=== PATIENT | male | born 1955 | race Caucasian/White ===

== ENCOUNTER 2020-07-25 07:24 | Outpatient (REF) | payer MEDICARE, SELFPAY ==
[2020-07-25 11:21] LABS: MANUAL DIFF FLAG NO
[2020-07-25 11:33] LABS: Basophils Absolute Auto 0.1 X10*3/uL (0.0-0.2); Basophils Percent Auto 0.6 % (0-2); Eosinophils Absolute Auto 0.5 X10*3/uL (0.0-0.4); Eosinophils Percent Auto 4.6 % (0-4); Hemoglobin 16.5 g/dl (14.0-18.0); Imm Gran Abs Auto 0.05 X10*3/uL (0.00-0.03); Imm Gran Pct Auto 0.5 % (0.0-0.4); Lymphocytes Percent Auto 19.4 % (20-40); Mean Corpuscular Hemoglobin 32.5 pg (27.0-33.0); Mean Corpuscular Volume 98.4 fL (80-98); Mean Platelet Volume 12.6 fL (9.4-12.4); Monocytes Absolute Auto 0.7 X10*3/uL (0.1-1.2); Monocytes Percent Auto 6.8 % (2-11); Neutrophils Absolute Auto 7.2 X10*3/uL (2.0-8.3); Neutrophils Percent Auto 68.1 % (45-73); Platelet Count 215 X10*3/uL (160-400); Red Blood Count 5.08 X10*6/uL (4.60-5.80); White Blood Count 10.5 X10*3/uL (4.8-10.8)
[2020-07-25 12:12] LABS: Alanine Aminotransferase 53 U/L (0-40); Albumin Level 4.8 g/dL (3.5-5.0); Alkaline Phosphatase 100 U/L (39-117); Anion Gap 17 (12-20); Aspartate Amino Transferase 49 U/L (5-37); Bilirubin Total 1.3 mg/dL (0.0-1.0); Blood Urea Nitrogen 12 mg/dL (9-16); Calcium 9.5 mg/dL (8.4-10.2); Carbon Dioxide 25 mmol/L (22-29); Chloride 101 mmol/L (96-108); Cholesterol 222 mg/dL; Estimated Glomerular Filt Rate > 60; Glucose Fasting 108 mg/dL (60-99); HDL Cholesterol 56 mg/dL; LDL Cholesterol Calculated 132 mg/dl; Potassium 4.1 mmol/L (3.3-5.1); Sodium 139 mmol/L (135-145); Total Protein 7.7 g/dL (6.5-8.0); Triglycerides 171 mg/dL
[2020-07-25 12:13] LABS: Vitamin D 25-OH Total 38.2 ng/mL (>30)
[2020-07-25 13:24] LABS: Folate 12.1 ng/mL (> or = 4.0); Vitamin B12 334 pg/mL (200-900)
== END 2020-07-25 07:25 | disposition home or self-care (01) ==
LOC: HO.HMGCLDS 07:24
PROVIDERS: PCP Internal Medicine; Visit Provider Internal Medicine
DX: E78.00 Pure hypercholesterolemia, unspecified (principal); D51.3 Other dietary vitamin B12 deficiency anemia; E55.9 Vitamin D deficiency, unspecified
CPT/HCPCS: 36415; 80053; 80061; 82306; 82607; 82746; 85025

== ENCOUNTER 2020-11-01 07:39 | Outpatient (REF) | payer MEDICARE, SELFPAY ==
[2020-11-01 12:11] LABS: Alanine Aminotransferase 74 U/L (0-40); Albumin Level 4.8 g/dL (3.5-5.0); Alkaline Phosphatase 107 U/L (39-117); Anion Gap 18 (12-20); Aspartate Amino Transferase 64 U/L (5-37); Bilirubin Total 1.6 mg/dL (0.0-1.0); Blood Urea Nitrogen 15 mg/dL (9-16); Calcium 9.9 mg/dL (8.4-10.2); Carbon Dioxide 28 mmol/L (22-29); Chloride 97 mmol/L (96-108); Cholesterol 187 mg/dL; Estimated Glomerular Filt Rate > 60; Glucose Fasting 111 mg/dL (60-99); HDL Cholesterol 53 mg/dL; LDL Cholesterol Calculated 89 mg/dl; Potassium 3.8 mmol/L (3.3-5.1); Sodium 139 mmol/L (135-145); Triglycerides 226 mg/dL
[2020-11-01 12:31] LABS: Folate 12.2 ng/mL (> or = 4.0); Vitamin B12 379 pg/mL (200-900)
[2020-11-07 04:27] LABS: Vitamin D 25-OH, D2 <4 ng/mL; Vitamin D 25-OH, D3 54 ng/mL; Vitamin D 25-OH, Total 54 ng/mL (30-100)
== END 2020-11-01 07:40 | disposition home or self-care (01) ==
LOC: HO.HMGCLDS 07:39
PROVIDERS: PCP Internal Medicine; Visit Provider Internal Medicine
DX: E78.5 Hyperlipidemia, unspecified (principal); I10 Essential (primary) hypertension; E53.8 Deficiency of other specified B group vitamins; E55.9 Vitamin D deficiency, unspecified
CPT/HCPCS: 36415; 80053; 80061; 82306; 82607; 82746

== ENCOUNTER 2021-05-16 08:32 | Outpatient (REF) | payer MEDICARE, SELFPAY ==
[2021-05-16 11:42] LABS: MANUAL DIFF FLAG NO
[2021-05-16 11:54] LABS: Basophils Absolute Auto 0.1 X10*3/uL (0.0-0.2); Basophils Percent Auto 0.6 % (0-2); Eosinophils Absolute Auto 0.7 X10*3/uL (0.0-0.4); Eosinophils Percent Auto 5.3 % (0-4); Hematocrit 50.8 % (42.0-52.0); Hemoglobin 16.4 g/dl (14.0-18.0); Imm Gran Abs Auto 0.09 X10*3/uL (0.00-0.03); Imm Gran Pct Auto 0.7 % (0.0-0.4); Lymphocytes Absolute Auto 2.4 X10*3/uL (1.2-4.9); Lymphocytes Percent Auto 19.2 % (20-40); Mean Corpuscular HGB Conc 32.3 g/dl (31.0-36.0); Mean Platelet Volume 12.9 fL (9.4-12.4); Monocytes Absolute Auto 0.8 X10*3/uL (0.1-1.2); Monocytes Percent Auto 6.6 % (2-11); Neutrophils Absolute Auto 8.5 x10*3/uL (2.0-8.3); Neutrophils Percent Auto 67.6 % (45-73); Platelet Count 200 X10*3/uL (160-400); Red Blood Count 5.13 X10*6/uL (4.60-5.80); Red Cell Distribution Width 13.2 % (11.0-16.0); White Blood Count 12.6 X10*3/uL (4.8-10.8)
[2021-05-16 12:21] LABS: Alanine Aminotransferase 56 U/L (0-40); Albumin Level 4.7 g/dL (3.5-5.0); Alkaline Phosphatase 93 U/L (39-117); Anion Gap 17 (12-20); Aspartate Amino Transferase 51 U/L (5-37); Bilirubin Total 0.5 mg/dL (0.0-1.0); Blood Urea Nitrogen 14 mg/dL (9-16); Calcium 10.5 mg/dL (8.4-10.2); Carbon Dioxide 27 mmol/L (22-29); Chloride 98 mmol/L (96-108); Cholesterol 216 mg/dL; Estimated Glomerular Filt Rate > 60; Glucose Fasting 112 mg/dL (60-99); HDL Cholesterol 50 mg/dL; LDL Cholesterol Calculated 121 mg/dl; Potassium 4.1 mmol/L (3.3-5.1); Sodium 138 mmol/L (135-145); Total Protein 7.8 g/dL (6.5-8.0); Triglycerides 229 mg/dL
[2021-05-16 12:53] LABS: Folate 10.8 ng/mL (> or = 4.0); Vitamin B12 382 pg/mL (200-900)
[2021-05-20 22:37] LABS: Intrinsic Factor Antibodies Negative (Negative)
[2021-05-21 13:52] LABS: Vitamin D 25-OH, D2 <4 ng/mL; Vitamin D 25-OH, D3 38 ng/mL; Vitamin D 25-OH, Total 38 ng/mL (30-100)
[2021-05-21 15:01] LABS: Parietal Cell Antibody <=20.0 Unit (<=20.0)
== END 2021-05-16 08:33 | disposition home or self-care (01) ==
LOC: HO.HMGCLDS 08:32
PROVIDERS: PCP Internal Medicine; Visit Provider Internal Medicine
DX: I10 Essential (primary) hypertension (principal); E53.8 Deficiency of other specified B group vitamins; E78.5 Hyperlipidemia, unspecified; E55.9 Vitamin D deficiency, unspecified; D64.9 Anemia, unspecified
CPT/HCPCS: 36415; 80053; 80061; 82306; 82607; 82746; 83516; 85025; 86340

== ENCOUNTER 2021-11-30 07:14 | Outpatient (REF) | payer MEDICARE, SELFPAY ==
[2021-11-30 07:23] LABS: MANUAL DIFF FLAG NO
[2021-11-30 07:56] LABS: Hematocrit 50.7 % (42.0-52.0); Mean Corpuscular HGB Conc 33.5 g/dl (31.0-36.0); Mean Corpuscular Hemoglobin 32.4 pg (27.0-33.0); Mean Corpuscular Volume 96.6 fL (80.0-98.0); Mean Platelet Volume 12.6 fL (9.4-12.4); Platelet Count 175 X10*3/uL (160-400); Red Blood Count 5.25 X10*6/uL (4.60-5.80); Red Cell Distribution Width 13.3 % (11.0-16.0); White Blood Count 13.8 X10*3/uL (4.8-10.8)
[2021-11-30 07:57] LABS: Basophils Absolute Auto 0.1 X10*3/uL (0.0-0.2); Basophils Percent Auto 0.9 % (0-2); Eosinophils Absolute Auto 0.6 X10*3/uL (0.0-0.4); Eosinophils Percent Auto 4.6 % (0-4); Imm Gran Abs Auto 0.11 X10*3/uL (0.00-0.03); Imm Gran Pct Auto 0.8 % (0.0-0.4); Lymphocytes Absolute Auto 2.7 X10*3/uL (1.2-4.9); Lymphocytes Percent Auto 19.2 % (20-40); Neutrophils Absolute Auto 9.3 x10*3/uL (2.0-8.3); Neutrophils Percent Auto 67.5 % (45-73)
[2021-11-30 08:18] LABS: Alanine Aminotransferase 48 U/L (0-40); Albumin Level 4.8 g/dL (3.5-5.0); Alkaline Phosphatase 100 U/L (39-117); Anion Gap 21 (12-20); Aspartate Amino Transferase 44 U/L (5-37); Bilirubin Total 1.1 mg/dL (0.0-1.0); Blood Urea Nitrogen 12 mg/dL (9-16); Calcium 9.9 mg/dL (8.4-10.2); Carbon Dioxide 26 mmol/L (22-29); Chloride 96 mmol/L (96-108); Cholesterol 205 mg/dL; Estimated Glomerular Filt Rate > 60; Glucose Fasting 130 mg/dL (60-99); HDL Cholesterol 46 mg/dL; LDL Cholesterol Calculated 109 mg/dl; Potassium 4.2 mmol/L (3.3-5.1); Sodium 139 mmol/L (135-145); Total Protein 7.8 g/dL (6.5-8.0); Triglycerides 252 mg/dL
[2021-11-30 08:38] LABS: Vitamin D 25-OH Total 35.4 ng/mL (>30)
[2021-11-30 08:46] LABS: Folate 13.5 ng/mL (> or = 4.0); Vitamin B12 360 pg/mL (200-900)
== END 2021-11-30 07:15 | disposition home or self-care (01) ==
LOC: HO.LAB 07:14
PROVIDERS: PCP Internal Medicine; Visit Provider Internal Medicine
DX: D64.9 Anemia, unspecified (principal); E78.5 Hyperlipidemia, unspecified; E53.8 Deficiency of other specified B group vitamins; E55.9 Vitamin D deficiency, unspecified; J44.9 Chronic obstructive pulmonary disease, unspecified
CPT/HCPCS: 36415; 80053; 80061; 82306; 82607; 82746; 85025

== ENCOUNTER 2022-06-11 08:39 | Outpatient (REF) | payer MEDICARE, MEDICAID, SELFPAY ==
[2022-06-11 09:00] LABS: Baso%MD 0.9 %; Eos%MD 5.8 %; Hematocrit 46.5 % (42.0-52.0); Hemoglobin 15.5 g/dl (14.0-18.0); IG%MD 0.6 %; Mean Corpuscular HGB Conc 33.3 g/dl (31.0-36.0); Mean Corpuscular Volume 96.1 fL (80.0-98.0); Mean Platelet Volume 11.5 fL (9.4-12.4); Mono%MD 7.6 %; Neut%MD 62.1 %; Platelet Count 170 X10*3/uL (160-400); Red Blood Count 4.84 X10*6/uL (4.60-5.80); Red Cell Distribution Width 12.7 % (11.0-16.0); White Blood Count 10.5 X10*3/uL (4.8-10.8)
[2022-06-11 09:57] LABS: Band Neutrophils Percent 1 % (3-5); Basophils Abs Manual 0.1 X10*3/uL (0.0-0.2); Basophils Percent Manual 1 % (0-2); Eosinophils Absolute Manual 0.4 X10*3/uL (0.0-0.4); Eosinophils Percent Manual 4 % (0-4); Lymphocytes Absolute Manual 2.4 X10*3/uL (1.2-4.9); Lymphocytes Percent Manual 23 % (20-40); Monocytes Absolute Manual 0.5 X10*3/uL (0.1-1.2); Monocytes Percent Manual 5 % (2-11); Neutrophils Percent Manual 66 % (45-73)
[2022-06-11 09:58] LABS: Platelet Estimate NORMAL (NORMAL); Platelet Morphology Comment NORMAL; RBC Morphology NORMAL
[2022-06-11 10:32] LABS: Alanine Aminotransferase 36 U/L (0-40); Albumin Level 4.6 g/dL (3.5-5.0); Alkaline Phosphatase 75 U/L (39-117); Anion Gap 14 (12-20); Aspartate Amino Transferase 32 U/L (5-37); Bilirubin Total 0.9 mg/dL (0.0-1.0); Blood Urea Nitrogen 19 mg/dL (9-16); Calcium 9.8 mg/dL (8.4-10.2); Carbon Dioxide 31 mmol/L (22-29); Chloride 98 mmol/L (96-108); Cholesterol 200 mg/dL; Estimated Glomerular Filt Rate > 60; Glucose Fasting 113 mg/dL (60-99); HDL Cholesterol 49 mg/dL; LDL Cholesterol Calculated 107 mg/dl; Potassium 4.3 mmol/L (3.3-5.1); Sodium 139 mmol/L (135-145); Total Protein 7.2 g/dL (6.5-8.0); Triglycerides 220 mg/dL
[2022-06-11 10:50] LABS: Folate 7.6 ng/mL (> or = 4.0); Vitamin B12 361 pg/mL (200-900); Vitamin D 25-OH Total 34.3 ng/mL (>30)
== END 2022-06-11 08:40 | disposition home or self-care (01) ==
LOC: HO.LAB 08:39
PROVIDERS: Internal Medicine Medical Oncology; PCP Internal Medicine; Visit Provider Internal Medicine
DX: D72.829 Elevated white blood cell count, unspecified (principal); J44.9 Chronic obstructive pulmonary disease, unspecified; E55.9 Vitamin D deficiency, unspecified; E53.8 Deficiency of other specified B group vitamins; E78.5 Hyperlipidemia, unspecified
CPT/HCPCS: 36415; 80053; 80061; 81206; 81207; 82306; 82607; 82746; 85007; 85027

== ENCOUNTER 2022-12-10 09:55 | Outpatient (REF) | payer MEDICARE, SELFPAY | END 2022-12-10 09:56 | disposition home or self-care (01) | LOC: HO.LAB 09:55 | PROVIDERS: PCP Internal Medicine; Visit Provider Internal Medicine | DX: E78.5 Hyperlipidemia, unspecified (principal); D72.829 Elevated white blood cell count, unspecified; R73.02 Impaired glucose tolerance (oral); E53.8 Deficiency of other specified B group vitamins; E55.9 Vitamin D deficiency, unspecified | CPT/HCPCS: 36415; 80053; 80061; 82306; 82607; 82746 ==

== ENCOUNTER 2022-12-12 08:40 | Outpatient (AMB) | payer MEDICARE, SELFPAY ==
[2022-12-12 08:46] VITALS: BP 130/86; PULSE 95; O2SAT 95; BMI 37.0
--- NOTE | 2022-12-12 08:46 | AM.OFFVISMDC ---
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 Patient of Dr. Oh. Today we discussed patient's need for colon cancer screening and prostate cancer screening. Patient declined colonoscopy or a Cologuard, denies changes in bowels, patient was educated on importance of such screening. Up-to-date with immunizations. [place] of care was reviewed with the patient and he was provided with a screening schedule. End of life planning was discussed with the patient and he was provided with healthcare proxy and MOLST forms. [facility] Medical History (Updated 12/12/22 @ 09:26 by STACY Zamarripa) Leukocytosis Leukocytosis Transaminitis Hypovitaminosis D Class 2 obesity with body mass index (BMI) of 37.0 to 37.9 in adult B12 deficiency COPD (chronic obstructive pulmonary disease) Obese Dyslipidemia Impaired glucose tolerance Essential hypertension Surgical History Kidney stone History of skin graft H/O left knee surgery History of appendectomy Family History Father Hypertension Stomach cancer Mother Stomach cancer Ovarian cancer Hypertension CVD (cardiovascular disease) Stroke Maternal Grandmother Medical history unknown Brother Colon cancer Rectal cancer Maternal Uncle Skin cancer Social History Household Members: None Housing: Apartment Are you a primary care asst to a significant other at home: No Do you presently have visiting nurse or other home services: No Alcohol intake: current Alcohol intake frequency: holidays/special occasions only Alcohol type: wine Patient Tobacco Use Status: Current someday Tobacco user Tobacco use type: Cigarette Cigarettes Per Day: 2 e-Cigarette/Vaping Use: Never Used Second Hand Smoke Exposure: No Substance Use Type: Marijuana service: Yes Current occupational status: retired and disabled Cognitive needs: No Hearing needs: No Vision needs: No Questionnaire Medicare Wellness Checkup [age] What gender do you identify with?: male During the past 4 weeks, how much have you been bothered by emotional problems such as feeling anxious, depressed, irritable, sad or downhearted, and blue?: not at all During the past 4 weeks, has your physical & emotional health limited your social activities with family, friends, neighbors, or groups?: slightly During the past 4 weeks, how much bodily pain have you generally had?: moderate pain During the past 4 weeks, was someone available to help you if you needed & wanted help?: yes, some During the past 4 weeks, what was the hardest physical activity you could do for at least 2 minutes?: moderate Can you get to places out of walking distance without help? (For eg., can you travel alone on buses, taxis or drive your car?): Yes Can you go shopping for groceries or clothes without someone's help?: Yes Can you prepare your own meals?: Yes Can you do your housework without help?: Yes Because of any health problems, do you need the help of another person with your personal care needs such as eating, bathing, dressing or getting around the house?: No Can you handle your own money without help?: Yes During the past 4 weeks, how would you rate your health in general?: fair During the past 4 weeks how have things been going for you?: pretty well Are you having difficulties driving your car?: not applicable, I don't use a car Do you always fasten your seat belt when you are in a car?: yes, usually During past 4 weeks, have you been bothered by the following: never: Falling or dizzy when standing up, Sexual problems?, Trouble eating well?, Teeth or denture problems? and Problems using the telephone? and sometimes: Tiredness or fatigue? Have you fallen 2 or more times in the past year?: No Are you afraid of falling?: No Are you a smoker?: yes, and I might quit During the past 4 weeks, how many drinks of wine, beer, or other alcoholic beverages did you have?: 1 drink or less per week Do you exercise for about 20 minutes 3 or more times a week?: yes, some of the time Have you been given information to help with the following?: yes: Hazards in your house that might hurt you? and no: Keeping track of your medications? How often do you have trouble taking medicines the way you have been told to take them?: I always take medicine as prescribed How confident are you that you can control & manage most of your health problems?: very confident What is your race?: White Mini Mental State Exam (MMSE) Orientation What is the (year) (season) (date) (day) (month)?: year, season, date, day and month Score Score: 5 Activity of Daily Living Bathing - sponge bath, tub bath or shower: receives no assistance (gets in/out by self, if usual bathing means Dressing - getting clothes from closets & drawers, including inner/outer garments & fasteners.: gets clothes & gets completely dressed without help Toileting - going to the 'toilet room' for urine/bowel elimination & cleaning self/arranging clothes: goes to toilet room, cleans self, arranges clothes without help Transfer: moves in & out of bed and chair without help (may use support object) Continence: controls urination/bowel movements completely by self Feeding: feeds self without help Total Score: 0 Information obtained from: patient Using telephone: independent Traveling: dependent Shopping: independent Preparing meals: independent Housework: independent Taking medicine: independent Managing money: independent PHQ-9 Over the last 2 weeks, how often have you been bothered by any of the following problems? 1. Little interest or pleasure in doing things: not at all 2. Feeling down, depressed, or hopeless: not at all 3. Trouble falling or staying asleep, or sleeping too much: more than half the days 4. Feeling tired or having little energy: not at all 5. Poor appetite or overeating: not at all 6. Feeling bad about yourself - or that you are a failure or have let yourself or your family down: not at all 7. Trouble concentrating on things, such as reading the newspaper or watching television: not at all 8. Moving or speaking so slowly that other people could have noticed. Or the opposite - being so fidgety or restless that you have been moving around a lot more than usual: not at all 9. Thoughts that you would be better off or of hurting yourself in some way: not at all Total score: 2 Depression Screening Interpretation: Negative Depression Screening Done: Yes 69112 - PHQ-9 Billing: Yes Source: Developed by Drs. Cesario Bergeron, Chrissy Cazares, Duran Santos and colleagues, with an educational javier from [employer]. Physical Exam Vital Signs: Last Vital Signs Pulse 95 12/12/22 08:46 BP 130/86 12/12/22 08:46 Pulse Ox 95 12/12/22 08:46 Oxygen Delivery Method Room Air 12/12/22 08:46 BMI result Body Mass Index 37.0 Const General: cooperative and no acute distress Orientation/consciousness: patient oriented x3 HEENT Other: Whisper test: pass Neuro Other: Balance: Normal Get up and walk: able to Romberg: negative Tandem gait: unable to General: patient oriented x3 Assessment & Plan Assessment & Plan (1) Screening for prostate cancer: Code(s): Z12.5 - Encounter for screening for malignant neoplasm of prostate (2) Encounter for Medicare annual wellness exam: Code(s): Z00.00 - Encounter for general adult medical examination without abnormal findings (3) Tubular adenoma of colon: Code(s): D12.6 - Benign neoplasm of colon, unspecified Plan: Patient reports that he did have normal colonoscopy at age 58, patient is due for another colonoscopy, he has declined colonoscopy or a Cologuard, he was educated on the importance of such screenings. (4) Class 2 obesity with body mass index (BMI) of 37.0 to 37.9 in adult: Code(s): E66.9 - Obesity, unspecified; Z68.37 - Body mass index [BMI] 37.0-37.9, adult Qualifiers: Obesity type: due to excess calories Serious obesity comorbidity presence: with serious comorbidity Qualified Code(s): E66.01 - Morbid (severe) obesity due to excess calories; Z68.37 - Body mass index [BMI] 37.0-37.9, adult Plan: Healthy food choices and exercise as tolerated (5) COPD (chronic obstructive pulmonary disease): Code(s): J44.9 - Chronic obstructive pulmonary disease, unspecified Plan: Stable Continue albuterol inhaler p.r.n. (6) Dyslipidemia: Code(s): E78.5 - Hyperlipidemia, unspecified Plan: Continue atorvastatin Low-cholesterol diet (7) Impaired glucose tolerance: Code(s): R73.02 - Impaired glucose tolerance (oral) Plan: Recent fasting glucose 108 A1c ordered (8) Essential hypertension: Code(s): I10 - Essential (primary) hypertension Plan: Goal BP equal or less than 140/90 Continue current treatment Low-sodium diet and weight loss (9) Colonoscopy refused: Code(s): Z53.20 - Procedure and treatment not carried out because of patient's decision for unspecified reasons Orders: Orders Prostate Specific Antigen Today Z12.5 - Encounter for screening for malignant neoplasm of prostate Hemoglobin A1c Today R73.02 - Impaired glucose tolerance (oral) Quality Reporting (2019) Adult ([facility] 138/2/69) Smoking risk assessment performed?: Yes Patient Tobacco Use Status: Current someday Tobacco user Depression/Bipolar (159/160/161/177) PHQ-9: Total score: 2 Coding Level of Care Code Medicare Subsequent (G0439) Diagnoses Screening for prostate cancer Z12.5 Encounter for Medicare annual wellness exam Z00.00 Tubular adenoma of colon D12.6 Class 2 severe obesity due to excess calories with serious comorbidity and body mass index (BMI) of 37.0 to 37.9 in adult E66.01; Z68.37 Obesity type: due to excess calories Serious obesity comorbidity presence: with serious comorbidity COPD (chronic obstructive pulmonary disease) J44.9 Dyslipidemia E78.5 Impaired glucose tolerance R73.02 Essential hypertension I10 Colonoscopy refused Z53.20 CPT Codes Advance Care Planning - Time spent: 1-15 minutes, not on file ([id number]) Advance Care Planning Date of discussion: 12/12/22 Who was present: pt and soot blower Forms completed: None Time spent: 1-15 minutes, not on file Actual minutes spent: 3 Did not discuss due to Cultural/Spiritual beliefs: No
== END 2022-12-12 09:24 | disposition home or self-care (01) ==
PROVIDERS: Visit Provider Nurse Practitioner Family
DX: Z00.00 Encounter for general adult medical examination without abnormal findings (principal); E66.01 Morbid (severe) obesity due to excess calories; Z68.37 Body mass index [BMI] 37.0-37.9, adult; J44.9 Chronic obstructive pulmonary disease, unspecified
CPT/HCPCS: 1124F; G0439

== ENCOUNTER 2023-06-18 08:14 | Outpatient (REF) | payer MEDICARE, SELFPAY ==
[2023-06-18 10:15] LABS: Alanine Aminotransferase 40 U/L (0-40); Albumin Level 4.6 g/dL (3.5-5.0); Alkaline Phosphatase 83 U/L (39-117); Anion Gap 15 (12-20); Aspartate Amino Transferase 36 U/L (5-37); Bilirubin Total 0.7 mg/dL (0.0-1.0); Blood Urea Nitrogen 16 mg/dL (9-16); Carbon Dioxide 28 mmol/L (22-29); Chloride 103 mmol/L (96-108); Cholesterol 172 mg/dL (<200); Estimated Glomerular Filt Rate > 60; Glucose Fasting 118 mg/dL (60-99); HDL Cholesterol 51 mg/dL (>40); LDL Cholesterol Calculated 89 mg/dL (<100); Potassium 4.6 mmol/L (3.3-5.1); Sodium 141 mmol/L (135-145); Total Protein 7.6 g/dL (6.5-8.0); Triglycerides 162 mg/dL (<150); Vitamin D 25-OH Total 31.8 ng/mL (>30)
[2023-06-18 10:56] LABS: Vitamin B12 385 pg/mL (200-900)
== END 2023-06-18 08:15 | disposition home or self-care (01) ==
LOC: HO.LAB 08:14
PROVIDERS: PCP Internal Medicine; Visit Provider Internal Medicine
DX: E78.5 Hyperlipidemia, unspecified (principal); E53.8 Deficiency of other specified B group vitamins; E55.9 Vitamin D deficiency, unspecified; R73.02 Impaired glucose tolerance (oral)
CPT/HCPCS: 36415; 80053; 80061; 82306; 82607; 82746

== ENCOUNTER 2023-06-24 09:44 | Outpatient (AMB) | payer MEDICARE, SELFPAY ==
[2023-06-24 09:49] VITALS: BP 138/82; PULSE 86; O2SAT 98; BMI 37.7
--- NOTE | 2023-06-24 09:49 | A.OFFVIS_ITS ---
Vital Signs 06/24/23 09:49 Height 5 ft 7 in Intake Visit Reasons: Hypertension Allergies No Known Allergies Allergy (Verified 12/12/22 09:07) [facility] Medical History (Updated 12/12/22 @ 09:26 by STACY Zamarripa) Leukocytosis Leukocytosis Transaminitis Hypovitaminosis D Class 2 obesity with body mass index (BMI) of 37.0 to 37.9 in adult B12 deficiency COPD (chronic obstructive pulmonary disease) Obese Dyslipidemia Impaired glucose tolerance Essential hypertension Surgical History Kidney stone History of skin graft H/O left knee surgery History of appendectomy Family History Father Hypertension Stomach cancer Mother Stomach cancer Ovarian cancer Hypertension CVD (cardiovascular disease) Stroke Maternal Grandmother Medical history unknown Brother Colon cancer Rectal cancer Maternal Uncle Skin cancer Social History Household Members: None Housing: Apartment Are you a primary care aid to a significant other at home: No Do you presently have visiting nurse or other home services: No Alcohol intake: current Alcohol intake frequency: holidays/special occasions only Alcohol type: wine Patient Tobacco Use Status: Current someday Tobacco user Tobacco use type: Cigarette Cigarettes Per Day: 2 e-Cigarette/Vaping Use: Never Used Second Hand Smoke Exposure: No Substance Use Type: Marijuana service: Yes Current occupational status: retired and disabled Cognitive needs: No Hearing needs: No Vision needs: No Quality Reporting (2019) Adult ([facility] 138/04/25/68) Smoking risk assessment performed?: Yes Patient Tobacco Use Status: Current someday Tobacco user
--- NOTE | 2023-06-24 09:57 | MHC.PC.OV ---
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 Accompanied by: Self / Same As Patient Allergies No Known Allergies Allergy (Verified 06/24/23 10:29) Medication List - Last Reconciled 06/24/23 by Carina Flaherty MD albuterol sulfate 90 mcg/actuation (ProAir HFA) 2 puffs inhalation Q6H PRN 30 days atorvastatin 80 mg PO BEDTIME 90 days cholecalciferol (vitamin D3) 125 mcg PO DAILY hydrochlorothiazide 50 mg PO DAILY 90 days losartan 25 mg PO DAILY 90 days multivitamin (Daily Multi-Vitamin tablet) 1 tab PO DAILY Tobacco use date assessed: 06/24/23 Fall risk assessment: No Falls in past year Last assessed Fall Risk: 06/24/23 Dental Screening Dental Screen Date: 06/24/23 HPI HPI Comments History of Present Illness Details This is a 67 year old male with hypertension, dyslipidemia, COPD and impaired glucose tolerance that comes today for follow-up on his conditions. Blood pressure stable. LDL within goal. Fasting blood glucose is elevated and this will be repeated in 6 months. Advised to start a low carbohydrate diet. Has COPD that has been stable with rescue inhaler as needed. Last pulmonary function test was few years ago. No chest pain or shortness of breath. Doing well. Declines colonoscopy. PFS Medical History Leukocytosis Leukocytosis Transaminitis Hypovitaminosis D Class 2 obesity with body mass index (BMI) of 37.0 to 37.9 in adult B12 deficiency COPD (chronic obstructive pulmonary disease) Obese Dyslipidemia Impaired glucose tolerance Essential hypertension Surgical History Kidney stone History of skin graft H/O left knee surgery History of appendectomy Family History Father Hypertension Stomach cancer Mother Stomach cancer Ovarian cancer Hypertension CVD (cardiovascular disease) Stroke Maternal Grandmother Medical history unknown Brother Colon cancer Rectal cancer Maternal Uncle Skin cancer Social History Household Members: None Housing: Apartment Are you a primary respiratory care assistant to a significant other at home: No Do you presently have visiting nurse or other home services: No Alcohol intake: current Alcohol intake frequency: holidays/special occasions only Alcohol type: wine Patient Tobacco Use Status: Current someday Tobacco user Tobacco use type: Cigarette Cigarettes Per Day: 2 e-Cigarette/Vaping Use: Never Used Second Hand Smoke Exposure: No Substance Use Type: Marijuana service: Yes Current occupational status: retired and disabled Cognitive needs: No Hearing needs: No Vision needs: No Questionnaire Thrive Questionnaire Date Thrive assessed: 06/24/23 I am a: Patient What is your living situation today?: I have a steady place to live Within the past 12 months, did the food you bought not last and you didn't have the money to get more?: Never true Within the past 12 months, did you worry whether your food would run out before you got money to buy more?: Never true Do you have trouble paying for medicines?: No Do you have trouble getting transportation to medical appointments?: No Do you have trouble paying your heating and electricity bill?: No Do you have trouble taking care of your child, family member or friend?: No Do you have trouble with day-to-day activities such as bathing, preparing meals, shopping, managing finances, etc.?: No Are you currently unemployed and looking for a job?: No Are you interested in more education?: No Please select the resources that you would like help with: None Currently or been in a relationship where the following occur: no concerns reported THRIVE Score: 0 AUDIT C Alcohol Use Questionnaire (AUDIT-C) 1. How often do you have a drink containing alcohol?: Monthly or less 2. How many drinks containing alcohol do you have on a typical day when you are drinking?: 1 or 2 3. How often do you have six or more drinks on one occasion?: Never Total Score: 1 EDUIN-7 AMB Questionnaire DEUIN-7 Date EDUIN - 7 assessed: 06/21/22 Source: Developed by Drs. Cesario Bergeron, Chrissy Cazares, Duran Santos and colleagues, with an educational javier from [facility]. Review of Systems Const All systems reviewed & are unremarkable except as noted in HPI and below Eyes Reports no additional complaints, Denies change in vision and Denies other visual disturbances Card Denies chest pain at rest, Denies chest pain with activity, Denies edema, Denies irregular heart rhythm, Denies claudication, Denies dyspnea, Denies dyspnea on exertion, Denies orthopnea, Denies paroxysmal nocturnal dyspnea and Denies slow heart rate Resp Denies cough, Denies dyspnea and Denies dyspnea on exertion Physical exam (Primary Care) Vital Signs: Last Vital Signs Pulse 86 06/24/23 09:49 BP 138/82 06/24/23 09:49 Pulse Ox 98 06/24/23 09:49 Oxygen Delivery Method Room Air 06/24/23 09:49 BMI result Body Mass Index 37.7 Tobacco/Smoking Status: Tobacco use Status Tobacco use date assessed 06/24/23 06/24/23 09:58 Patient Tobacco Use Status Current someday Tobacco 06/24/23 09:58 Tobacco use type Cigarette 06/24/23 09:58 e-Cigarette/Vaping Use Never Used 06/24/23 09:58 Thrive Assessment: Date of Thrive Assessment Date Thrive assessed 06/24/23 06/24/23 09:58 Currently or been in a relationship where the following occur: no concerns reported Resp Effort & Inspection: normal respiratory effort Auscultation: clear to auscultation bilaterally Cardio Jugular venous distension: no JVD Rate: regular rate Rhythm: regular rhythm Heart sounds: S1 normal heart sound present and S2 normal heart sound present Extrem General: Yes full ROM Assessment and Plan Assessment & Plan (1) COPD (chronic obstructive pulmonary disease): Code(s): J44.9 - Chronic obstructive pulmonary disease, unspecified Plan: PFT ordered. Use rescue inhaler as needed. (2) Dyslipidemia: Code(s): E78.5 - Hyperlipidemia, unspecified Plan: Continue statins. (3) Essential hypertension: Code(s): I10 - Essential (primary) hypertension Plan: Continue losartan and hydrochlorothiazide. Blood pressure goal is equal or less than 130/80. (4) Impaired glucose tolerance: Code(s): R73.02 - Impaired glucose tolerance (oral) Plan: Start low-carbohydrate diet. Repeat fasting blood glucose in 6 months. Orders: Orders Lipid Panel 6 Months E78.5 - Hyperlipidemia, unspecified Comprehensive [place]. Panel Fast 6 Months R73.02 - Impaired glucose tolerance (oral) Vitamin B12 and Folate 6 Months E53.8 - Deficiency of other specified B group vitamins Vitamin D 25-OH Total 6 Months E55.9 - Vitamin D deficiency, unspecified PFT pulmonary function test Today J44.9 - Chronic obstructive pulmonary disease, unspecified Review Patient declined Colonoscopy: 06/24/23 Patient declined Colon Cancer Screen Lab: 06/24/23 Coding Level of Care Code Est Pt Level 4 (05669) Diagnoses COPD (chronic obstructive pulmonary disease) J44.9 Dyslipidemia E78.5 Essential hypertension I10 Impaired glucose tolerance R73.02 Time Spent (min) 23
== END 2023-06-24 10:45 | disposition home or self-care (01) ==
PROVIDERS: PCP Internal Medicine; Visit Provider Internal Medicine
DX: J44.9 Chronic obstructive pulmonary disease, unspecified (principal); E78.5 Hyperlipidemia, unspecified; I10 Essential (primary) hypertension; R73.02 Impaired glucose tolerance (oral)
CPT/HCPCS: 99214

== ENCOUNTER 2023-12-20 10:06 | Outpatient (REF) | payer MEDICARE, SELFPAY ==
[2023-12-20 11:31] LABS: Alanine Aminotransferase 38 U/L (0-40); Albumin Level 4.7 g/dL (3.5-5.0); Alkaline Phosphatase 72 U/L (39-117); Anion Gap 15 (12-20); Aspartate Amino Transferase 39 U/L (5-37); Bilirubin Total 1.1 mg/dL (0.0-1.0); Blood Urea Nitrogen 11 mg/dL (9-16); Calcium 10.1 mg/dL (8.4-10.2); Carbon Dioxide 29 mmol/L (22-29); Chloride 102 mmol/L (96-108); Cholesterol 205 mg/dL (<200); Estimated Glomerular Filt Rate > 60; Glucose Fasting 122 mg/dL (60-99); HDL Cholesterol 44 mg/dL (>40); LDL Cholesterol Calculated 117 mg/dL (<100); Potassium 4.6 mmol/L (3.3-5.1); Sodium 141 mmol/L (135-145); Total Protein 7.6 g/dL (6.5-8.0); Triglycerides 223 mg/dL (<150)
[2023-12-20 11:36] LABS: Vitamin D 25-OH Total 28.9 ng/mL (>30)
[2023-12-20 11:48] LABS: Folate 14.2 ng/mL (> or = 4.0); Vitamin B12 423 pg/mL (200-900)
== END 2023-12-20 10:07 | disposition home or self-care (01) ==
LOC: HO.LAB 10:06
PROVIDERS: PCP Internal Medicine; Visit Provider Internal Medicine
DX: R73.02 Impaired glucose tolerance (oral) (principal); E55.9 Vitamin D deficiency, unspecified; E78.5 Hyperlipidemia, unspecified; E53.8 Deficiency of other specified B group vitamins
CPT/HCPCS: 36415; 80053; 80061; 82306; 82607; 82746

== ENCOUNTER 2023-12-24 07:45 | Outpatient (AMB) | payer MEDICARE, SELFPAY ==
[2023-12-24 07:50] VITALS: BP 152/100; BMI 37.4
--- NOTE | 2023-12-24 07:50 | A.OFFPC_ITS ---
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 Accompanied by: Self / Same As Patient Allergies No Known Allergies Allergy (Verified 12/24/23 08:06) Medication List - Last Reconciled 12/24/23 by Carina Flaherty MD albuterol sulfate 90 mcg/actuation (ProAir HFA) 2 puffs inhalation Q6H PRN 30 days atorvastatin 80 mg PO BEDTIME 90 days cholecalciferol (vitamin D3) 125 mcg PO DAILY hydrochlorothiazide 50 mg PO DAILY 90 days losartan 25 mg PO DAILY 90 days multivitamin (Daily Multi-Vitamin tablet) 1 tab PO DAILY Tobacco use date assessed: 06/24/23 Fall risk assessment: No Falls in past year Last assessed Fall Risk: 12/24/23 Dental Screening Dental Screen Date: 12/24/23 Did you have a dental visit in the last 12 months?: No Did you have a dental problem in the last 6 months where you did not have access to dental care?: No Was dental information given to patient?: Patient has dentist HPI HPI Comments History of Present Illness Details This is a 68-year-old male with hypertension, dyslipidemia, impaired glucose tolerance and COPD that comes today for follow-up on his conditions and recent labs. Blood pressure elevated today and he only takes losartan 25 mg once a day. I will increase losartan to 50 mg. Blood pressure will be recheck in 3 weeks by nurse navigator. Cholesterol elevated and he admits not being compliant with atorvastatin. Fasting blood glucose also elevated but he denies any polyuria, polydipsia or unintentional weight loss. He was advised to call me if this symptoms happen. He use rescue inhaler once a year for his COPD. Last colonoscopy was 2014 showing multiple tubular adenomas but he declines colonoscopy at the moment. He is a smoker and was advised to quit. [facility] Medical History (Updated 12/24/23 @ 08:27 by Carina Flaherty MD) Leukocytosis Leukocytosis Transaminitis Hypovitaminosis D Class 2 obesity with body mass index (BMI) of 37.0 to 37.9 in adult B12 deficiency COPD (chronic obstructive pulmonary disease) Obese Dyslipidemia Impaired glucose tolerance Essential hypertension Surgical History Kidney stone History of skin graft H/O left knee surgery History of appendectomy Family History Father Hypertension Stomach cancer Mother Stomach cancer Ovarian cancer Hypertension CVD (cardiovascular disease) Stroke Maternal Grandmother Medical history unknown Brother Colon cancer Rectal cancer Maternal Uncle Skin cancer Social History Household Members: None Housing: Apartment Are you a primary clinical care coordinator to a significant other at home: No Do you presently have visiting nurse or other home services: No Alcohol intake: current Alcohol intake frequency: holidays/special occasions only Alcohol type: wine Patient Tobacco Use Status: Current someday Tobacco user Tobacco use type: Cigarette Cigarettes Per Day: 2 e-Cigarette/Vaping Use: Never Used Second Hand Smoke Exposure: No Substance Use Type: Marijuana service: Yes Current occupational status: retired and disabled Cognitive needs: No Hearing needs: No Vision needs: No Questionnaire Thrive Questionnaire Date Thrive assessed: 06/24/23 EDUIN-7 AMB Questionnaire EDUIN-7 Date EDUIN - 7 assessed: 06/21/22 Source: Developed by Drs. Cesario Bergeron, Chrissy Cazares, Duran Santos and colleagues, with an educational javier from [employer]. Review of Systems Const All systems reviewed & are unremarkable except as noted in HPI and below Card Denies chest pain at rest, Denies chest pain with activity, Denies edema, Denies irregular heart rhythm, Denies claudication, Denies dyspnea, Denies dyspnea on exertion, Denies orthopnea, Denies paroxysmal nocturnal dyspnea and Denies slow heart rate Resp Denies cough, Denies dyspnea and Denies dyspnea on exertion GI Denies abdominal pain, Denies change in bowel habits, Denies excessive flatus, Denies nausea and Denies vomiting Physical exam (Primary Care) Vital Signs: Last Vital Signs BP 152/100 H 12/24/23 07:50 Care Plan Goal for BP management: Losartan was increased to 50 mg. Next steps: Recheck blood pressure with nurse navigator in 3 weeks BMI result Body Mass Index 37.4 BMI Assessment/Plan discussion: High BMI High, discussed plan: lifestyle, weight reduction, dietary and physical activity Tobacco/Smoking Status: Tobacco use Status Tobacco use date assessed 06/24/23 12/24/23 07:56 Patient Tobacco Use Status Current someday Tobacco 12/24/23 07:56 Tobacco use type Cigarette 12/24/23 07:56 e-Cigarette/Vaping Use Never Used 12/24/23 07:56 Are you ready to quit: No Tobacco cessation counseling provided: Yes Items discussed: Nicotine replacement and QuitWorks Relapse Prevention: discussed the importance of a supportive environment, discussed negative mood or depression after quitting, weight gain after smoking is common and discussed dietary, exercise and/or lifestyle changes Number of minutes spent counselin CPT code: 02077 - 4-10 Minutes Thrive Assessment: Date of Thrive Assessment Date Thrive assessed 06/24/23 12/24/23 07:56 Resp Effort & Inspection: normal respiratory effort Auscultation: clear to auscultation bilaterally Cardio Jugular venous distension: no JVD Rate: regular rate Rhythm: regular rhythm Heart sounds: S1 normal heart sound present and S2 normal heart sound present Extrem General: Yes full ROM Office Procedures Flu Questionnaire Does the patient have a severe egg allergy?: No Immunizations Fluarix Triv [id number] (PF) 45 mcg (15 mcg x 3)/0.5 mL IM syringe Performing Provider: Carina Flaherty MD [facility] Documented (not given) by: JINNY Barraza on 12/24/23 07:57 Reason Not Given: Patient Refused Coding Level of Care Code Est Pt Level 4 (19840) Complex EM visit Add On G2211 Diagnoses Essential hypertension I10 Chronic obstructive pulmonary disease, unspecified COPD type J44.9 COPD type: unspecified COPD Dyslipidemia E78.5 Impaired glucose tolerance R73.02 Additional Codes Vital Signs *Quality* - CPT code: 24126 - 4-10 Minutes ([id number]) Time Spent (min) 24 Assessment & Plan Assessment & Plan (1) Essential hypertension: Code(s): I10 - Essential (primary) hypertension Category: Medical Plan: Increase losartan to 50 mg. Blood pressure goal is equal or less than 130/80. Recheck blood pressure with nurse navigator in 3 weeks. (2) COPD (chronic obstructive pulmonary disease): Code(s): J44.9 - Chronic obstructive pulmonary disease, unspecified Category: Medical Qualifiers: COPD type: unspecified COPD Qualified Code(s): J44.9 - Chronic obstructive pulmonary disease, unspecified Plan: Use rescue inhaler as needed. (3) Dyslipidemia: Code(s): E78.5 - Hyperlipidemia, unspecified Category: Medical Plan: Be compliant with statins. Advise low-cholesterol diet. (4) Impaired glucose tolerance: Code(s): R73.02 - Impaired glucose tolerance (oral) Category: Medical Plan: Repeat fasting blood glucose in 6 months. Orders: Orders Influenza [id number] Immunization Today Z23 - Encounter for immunization Lipid Panel 6 Months E78.5 - Hyperlipidemia, unspecified Complete Blood Count Auto Diff 6 Months D64.9 - Anemia, unspecified Comprehensive Binger. Panel Fast 6 Months R73.02 - Impaired glucose tolerance (oral) Vitamin D 25-OH Total 6 Months E55.9 - Vitamin D deficiency, unspecified Vitamin B12 and Folate 6 Months E53.8 - Deficiency of other specified B group vitamins IRON PROFILE 6 Months D64.9 - Anemia, unspecified Medications: New losartan 50 mg PO DAILY 90 tabs 1RF 90 days Discontinued hydrochlorothiazide Discontinued Reason: Patient Completed Course 50 mg PO DAILY 90 days 90 tabs 1RF losartan Discontinued Reason: Patient Completed Course 25 mg PO DAILY 90 days 90 tabs 0RF
[2023-12-24 08:25] VITALS: BP 150/90
== END 2023-12-24 08:24 | disposition home or self-care (01) ==
PROVIDERS: PCP Internal Medicine; Visit Provider Internal Medicine
DX: I10 Essential (primary) hypertension (principal); J44.9 Chronic obstructive pulmonary disease, unspecified; E78.5 Hyperlipidemia, unspecified; R73.02 Impaired glucose tolerance (oral); Z23 Encounter for immunization

== ENCOUNTER → 2023-12-24 07:45 | Outpatient (BNVA) | payer MEDICARE, SELFPAY | PROVIDERS: PCP Internal Medicine; Visit Provider Internal Medicine | DX: I10 Essential (primary) hypertension (principal); J44.9 Chronic obstructive pulmonary disease, unspecified; E78.5 Hyperlipidemia, unspecified; R73.02 Impaired glucose tolerance (oral); Z79.899 Other long term (current) drug therapy; Z28.21 Immunization not carried out because of patient refusal | CPT/HCPCS: 90471; 99212 ==

== ENCOUNTER 2024-06-25 07:44 | Outpatient (REF) | payer MEDICARE, SELFPAY ==
[2024-06-25 08:02] LABS: MANUAL DIFF FLAG NO
[2024-06-25 08:16] LABS: Basophils Absolute Auto 0.1 X10*3/uL (0.0-0.2); Basophils Percent Auto 0.6 % (0-2); Eosinophils Absolute Auto 0.7 X10*3/uL (0.0-0.4); Hematocrit 45.8 % (42.0-52.0); Hemoglobin 15.2 g/dl (14.0-18.0); Imm Gran Abs Auto 0.08 X10*3/uL (0.00-0.03); Imm Gran Pct Auto 0.7 % (0.0-0.4); Lymphocytes Absolute Auto 2.5 X10*3/uL (1.2-4.9); Lymphocytes Percent Auto 22.5 % (20-40); Mean Corpuscular HGB Conc 33.2 g/dl (31.0-36.0); Mean Corpuscular Hemoglobin 32.3 pg (27.0-33.0); Mean Corpuscular Volume 97.4 fL (80.0-98.0); Mean Platelet Volume 11.9 fL (9.4-12.4); Monocytes Absolute Auto 0.7 X10*3/uL (0.1-1.2); Monocytes Percent Auto 6.5 % (2-11); Neutrophils Percent Auto 63.7 % (45-73); Platelet Count 170 X10*3/uL (160-400); Red Cell Distribution Width 12.8 % (11.0-16.0)
[2024-06-25 08:47] LABS: Alanine Aminotransferase 36 U/L (0-40); Albumin Level 4.5 g/dL (3.5-5.0); Alkaline Phosphatase 79 U/L (39-117); Anion Gap 9 (12-20); Aspartate Amino Transferase 31 U/L (5-37); Bilirubin Total 0.5 mg/dL (0.0-1.0); Blood Urea Nitrogen 9 mg/dL (9-16); Calcium 9.9 mg/dL (8.4-10.2); Carbon Dioxide 32 mmol/L (22-29); Chloride 103 mmol/L (96-108); Cholesterol 151 mg/dL (<200); Estimated Glomerular Filt Rate > 60; Glucose Fasting 110 mg/dL (60-99); HDL Cholesterol 52 mg/dL (>40); Iron 59 mcg/dL (45-160); LDL Cholesterol Calculated 67 mg/dL (<100); Percent Iron Saturation 21 % (15-50); Potassium 4.6 mmol/L (3.3-5.1); Sodium 139 mmol/L (135-145); Total Iron Binding Capacity 285 mcg/dL (228-428); Total Protein 7.3 g/dL (6.5-8.0); Triglycerides 162 mg/dL (<150); Unsaturated Iron Binding 226 ug/dL
[2024-06-25 09:03] LABS: Vitamin D 25-OH Total 33.3 ng/mL (>30)
[2024-06-25 09:10] LABS: Vitamin B12 428 pg/mL (200-900)
== END 2024-06-25 07:45 | disposition home or self-care (01) ==
LOC: HO.LAB 07:44
PROVIDERS: PCP Internal Medicine; Visit Provider Internal Medicine
DX: E78.5 Hyperlipidemia, unspecified (principal); E55.9 Vitamin D deficiency, unspecified; E53.8 Deficiency of other specified B group vitamins; D64.9 Anemia, unspecified; R73.02 Impaired glucose tolerance (oral)
CPT/HCPCS: 36415; 80053; 80061; 82306; 82607; 82746; 83540; 85025

== ENCOUNTER 2024-06-29 08:32 | Outpatient (AMB) | payer MEDICARE, SELFPAY ==
--- NOTE | 2024-06-29 08:55 | MHC.PC.OV ---
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 Accompanied by: Self / Same As Patient Allergies No Known Allergies Allergy (Verified 06/29/24 08:57) Tobacco use date assessed: 06/29/24 Fall risk assessment: No Falls in past year Last assessed Fall Risk: 06/29/24 Dental Screening Dental Screen Date: 06/29/24 Did you have a dental visit in the last 12 months?: No Did you have a dental problem in the last 6 months where you did not have access to dental care?: No Was dental information given to patient?: Patient has dentist [facility] Medical History Leukocytosis Leukocytosis Transaminitis Hypovitaminosis D Class 2 obesity with body mass index (BMI) of 37.0 to 37.9 in adult B12 deficiency COPD (chronic obstructive pulmonary disease) Obese Dyslipidemia Impaired glucose tolerance Essential hypertension Surgical History Kidney stone History of skin graft H/O left knee surgery History of appendectomy Family History Father Hypertension Stomach cancer Mother Stomach cancer Ovarian cancer Hypertension CVD (cardiovascular disease) Stroke Maternal Grandmother Medical history unknown Brother Colon cancer Rectal cancer Maternal Uncle Skin cancer Social History Household Members: None Housing: Apartment Are you a primary patient centered care specialist to a significant other at home: No Do you presently have visiting nurse or other home services: No Alcohol intake: current Alcohol intake frequency: holidays/special occasions only Alcohol type: wine Patient Tobacco Use Status: Current someday Tobacco user Tobacco use type: Cigarette Cigarettes Per Day: 2 e-Cigarette/Vaping Use: Never Used Second Hand Smoke Exposure: No Substance Use Type: Marijuana service: Yes Current occupational status: retired and disabled Cognitive needs: No Hearing needs: No Vision needs: No Questionnaire PHQ-9 Over the last 2 weeks, how often have you been bothered by any of the following problems? 1. Little interest or pleasure in doing things: not at all 2. Feeling down, depressed, or hopeless: not at all 3. Trouble falling or staying asleep, or sleeping too much: not at all 4. Feeling tired or having little energy: several days 5. Poor appetite or overeating: not at all 6. Feeling bad about yourself - or that you are a failure or have let yourself or your family down: not at all 7. Trouble concentrating on things, such as reading the newspaper or watching television: not at all 8. Moving or speaking so slowly that other people could have noticed. Or the opposite - being so fidgety or restless that you have been moving around a lot more than usual: not at all 9. Thoughts that you would be better off or of hurting yourself in some way: not at all Total score: 1 Source: Developed by Drs. Cesario Bergeron, Chrissy Cazares, Duran Santos and colleagues, with an educational javier from [employer]. Thrive Questionnaire Date Thrive assessed: 06/29/24 I am a: Patient What is your living situation today?: I have a steady place to live Within the past 12 months, did the food you bought not last and you didn't have the money to get more?: Never true Within the past 12 months, did you worry whether your food would run out before you got money to buy more?: Never true Do you have trouble paying for medicines?: No Do you have trouble getting transportation to medical appointments?: Yes Do you have trouble paying your heating and electricity bill?: No Do you have trouble taking care of your child, family member or friend?: No Do you have trouble with day-to-day activities such as bathing, preparing meals, shopping, managing finances, etc.?: No Are you currently unemployed and looking for a job?: No Are you interested in more education?: No Please select the resources that you would like help with: None Currently or been in a relationship where the following occur: No concerns reported THRIVE Score: 1 AUDIT C Alcohol Use Questionnaire (AUDIT-C) 1. How often do you have a drink containing alcohol?: 2-4 times a month 2. How many drinks containing alcohol do you have on a typical day when you are drinking?: 1 or 2 3. How often do you have six or more drinks on one occasion?: Never Total Score: 2 EDUIN-7 AMB Questionnaire EDUIN-7 Date EDUIN - 7 assessed: 06/29/24 Feeling nervous, anxious, or on edge: 1 = Several days Not being able to stop or control worryin = Not at all Worrying too much about different things: 0 = Not at all Trouble relaxin = Not at all Being so restless that it is hard to sit still: 0 = Not at all Becoming easily annoyed or irritable: 0 = Not at all Feeling afraid as if something awful might happen: 0 = Not at all Total EDUIN-7 score (0-4 normal; 5-9 mild; 10-14 moderate; 15-21 severe): 1 Source: Developed by Drs. Cesario Bergeron, Chrissy Cazares, Duran Santos and colleagues, with an educational javier from [employer]. Physical exam (Primary Care) Tobacco/Smoking Status: Tobacco use Status Tobacco use date assessed 06/24/23 12/24/23 07:56 Patient Tobacco Use Status Current someday Tobacco 12/24/23 07:56 Tobacco use type Cigarette 12/24/23 07:56 e-Cigarette/Vaping Use Never Used 12/24/23 07:56 Thrive Assessment: Date of Thrive Assessment Date Thrive assessed 06/24/23 12/24/23 07:56 Currently or been in a relationship where the following occur: No concerns reported Coding
[2024-06-29 08:58] VITALS: BP 132/86; BMI 37.4
--- NOTE | 2024-06-29 09:00 | AM.OFFVISMDC ---
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 He is maintaining his health with ongoing management of his hypertension using losartan and hypercholesterolemia using atorvastatin. His past cardiovascular health management efforts show no significant recent changes as his blood pressure and cholesterol management are satisfactory. He has a history of COPD managed with inhalers, confirming no recent respiratory symptoms necessitating specialist visits. He has shown improved control in his blood glucose levels but has a history of vaccinations needing updates, specifically discussing a follow-up pneumonia vaccine. [facility] handed to patient. [place] of care updated. Socially, the patient engages in occasional tobacco use but denies daily smoking habits and consumes wine moderately on special occasions. He primarily limits physical activity in depth and duration due to weight concerns impacting health-monitoring choices like colonoscopy. His independent functional status remains intact, performing regular activities, and he is vigilant about lifestyle habits likely influencing chronic condition management. The patient is not experiencing any medication-related adverse effects, attends to personal care needs effortlessly, and embraces a relatively independent lifestyle. - Pneumonia vaccine considered necessary after age 65 and was previously administered at age 59. - Colonoscopy last performed in 2014, planning for a future evaluation after the patient turns 70. - Blood glucose and cholesterol levels improved with current therapeutic management. - Blood work to be repeated in six months to evaluate ongoing metabolic control and monitor vitamin levels. - Discussion on the potential requirement for a telehealth evaluation for ongoing review of laboratory results. - No urgent medical evaluations or new health maintenance procedures prioritized other than routine check-ups. [facility] Medical History (Updated 06/29/24 @ 11:09 by Carina Flaherty MD) Leukocytosis Leukocytosis Transaminitis Hypovitaminosis D Class 2 obesity with body mass index (BMI) of 37.0 to 37.9 in adult B12 deficiency COPD (chronic obstructive pulmonary disease) Obese Dyslipidemia Impaired glucose tolerance Essential hypertension Surgical History Kidney stone History of skin graft H/O left knee surgery History of appendectomy Family History (Updated 06/29/24 @ 09:26 by Carina Flaherty MD) Father Hypertension Stomach cancer Mother Stomach cancer Ovarian cancer Hypertension CVD (cardiovascular disease) Stroke Maternal Grandmother Medical history unknown Brother Colon cancer Rectal cancer Maternal Uncle Skin cancer Social History Household Members: None Housing: Apartment Are you a primary acute care registered nurse to a significant other at home: No Do you presently have visiting nurse or other home services: No Alcohol intake: current Alcohol intake frequency: holidays/special occasions only Alcohol type: wine Patient Tobacco Use Status: Current someday Tobacco user Tobacco use type: Cigarette Cigarettes Per Day: 2 e-Cigarette/Vaping Use: Never Used Second Hand Smoke Exposure: No Substance Use Type: Marijuana service: Yes Current occupational status: retired and disabled Cognitive needs: No Hearing needs: No Vision needs: No Questionnaire Medicare Wellness Checkup What [age] 65-71 What gender do you identify with?: male During the past 4 weeks, how much have you been bothered by emotional problems such as feeling anxious, depressed, irritable, sad or downhearted, and blue?: slightly During the past 4 weeks, has your physical & emotional health limited your social activities with family, friends, neighbors, or groups?: not at all During the past 4 weeks, how much bodily pain have you generally had?: moderate pain During the past 4 weeks, was someone available to help you if you needed & wanted help?: yes, as much as I wanted During the past 4 weeks, what was the hardest physical activity you could do for at least 2 minutes?: light Can you get to places out of walking distance without help? (For eg., can you travel alone on buses, taxis or drive your car?): Yes Can you go shopping for groceries or clothes without someone's help?: Yes Can you prepare your own meals?: Yes Can you do your housework without help?: Yes Because of any health problems, do you need the help of another person with your personal care needs such as eating, bathing, dressing or getting around the house?: No Can you handle your own money without help?: Yes During the past 4 weeks, how would you rate your health in general?: fair During the past 4 weeks how have things been going for you?: very well; could hardly better Are you having difficulties driving your car?: not applicable, I don't use a car Do you always fasten your seat belt when you are in a car?: yes, usually During past 4 weeks, have you been bothered by the following: never: Falling or dizzy when standing up, Sexual problems?, Trouble eating well?, Teeth or denture problems? and Problems using the telephone? and sometimes: Tiredness or fatigue? Have you fallen 2 or more times in the past year?: No Are you afraid of falling?: No Are you a smoker?: yes, and I might quit During the past 4 weeks, how many drinks of wine, beer, or other alcoholic beverages did you have?: 1 drink or less per week Do you exercise for about 20 minutes 3 or more times a week?: no, I usually do not exercise this much Have you been given information to help with the following?: yes: Hazards in your house that might hurt you? and yes: Keeping track of your medications? How often do you have trouble taking medicines the way you have been told to take them?: I always take medicine as prescribed How confident are you that you can control & manage most of your health problems?: very confident What is your race?: or [place] Mini Mental State Exam (MMSE) Orientation What is the (year) (season) (date) (day) (month)?: year, season, date, day and month Where are we (state) (county) (town or city) (hospital) (floor)?: state, county, town or city, hospital/clinic and floor Registration Name of 3 unrelated objects clearly and slowly, then ask patient to repeat all 3 of them. (1st repeat determines score. Make sure they can repeat all three): object 1, object 2 and object 3 Attention & Calculation (CHOOSE ONE) Spell WORLD backwards (DLROW): 5 letters Recall Ask patient to repeat the 3 items from question #3.: object 1, object 2 and object 3 Language Show patient a wristwatch & ask what it is. Repeat for pencil.: watch and pencil Ask the patient to repeat the phrase 'No ifs, ands, or buts' after you.: correct Ask the patient to 'take a piece of paper with their right hand' 'fold paper in half' 'place paper on floor': take paper in right hand, fold paper in half and place paper on floor Print the sentence 'CLOSE YOUR EYES' on a piece. If patient actually closes eyes then score.: followed written direction Give patient a blank piece of paper & ask to write a sentence. Score if it contains a noun & verb.: sentence contains subject and verb Ask patient to copy figure of intersecting pentagons exactly. Score if all 10 angles & 2 intersects are included.: all 10 angles present & 2 are intersected Score Score: 30 Activity of Daily Living Bathing - sponge bath, tub bath or shower: receives no assistance (gets in/out by self, if usual bathing means Dressing - getting clothes from closets & drawers, including inner/outer garments & fasteners.: gets clothes & gets completely dressed without help Toileting - going to the 'toilet room' for urine/bowel elimination & cleaning self/arranging clothes: goes to toilet room, cleans self, arranges clothes without help Transfer: moves in & out of bed and chair without help (may use support object) Continence: controls urination/bowel movements completely by self Feeding: feeds self without help Total Score: 0 Information obtained from: patient Using telephone: independent Traveling: independent Shopping: independent Preparing meals: independent Housework: independent Taking medicine: independent Managing money: independent PHQ-9 Over the last 2 weeks, how often have you been bothered by any of the following problems? 1. Little interest or pleasure in doing things: not at all 2. Feeling down, depressed, or hopeless: not at all 3. Trouble falling or staying asleep, or sleeping too much: several days 4. Feeling tired or having little energy: several days 5. Poor appetite or overeating: not at all 6. Feeling bad about yourself - or that you are a failure or have let yourself or your family down: not at all 7. Trouble concentrating on things, such as reading the newspaper or watching television: not at all 8. Moving or speaking so slowly that other people could have noticed. Or the opposite - being so fidgety or restless that you have been moving around a lot more than usual: not at all 9. Thoughts that you would be better off or of hurting yourself in some way: not at all Total score: 2 Depression Screening Interpretation: Negative Depression Screening Done: Yes 59696 - PHQ-9 Billing: Yes Source: Developed by Drs. Cesario Bergeron, Duran Diaz and colleagues, with an educational javier from [employer]. Fall Risk Assessment Fall Risk Assessment Fall risk assessment: No Falls in past year AUDIT C Alcohol Use Questionnaire (AUDIT-C) 1. How often do you have a drink containing alcohol?: Monthly or less 2. How many drinks containing alcohol do you have on a typical day when you are drinking?: 1 or 2 3. How often do you have six or more drinks on one occasion?: Never Total Score: 1 EDUIN-7 AMB Questionnaire EDUIN-7 Date EDUIN - 7 assessed: 06/29/24 Feeling nervous, anxious, or on edge: 1 = Several days Not being able to stop or control worryin = Not at all Worrying too much about different things: 0 = Not at all Trouble relaxin = Not at all Being so restless that it is hard to sit still: 0 = Not at all Becoming easily annoyed or irritable: 0 = Not at all Feeling afraid as if something awful might happen: 0 = Not at all Total EDUIN-7 score (0-4 normal; 5-9 mild; 10-14 moderate; 15-21 severe): 1 Source: Developed by Drs. Cesario Bergeron, Duran Diaz and colleagues, with an educational javier from [employer]. EDUIN-7 Assessment Billing EDUIN-7 Assessment Tool: EDUIN-7 Assessment 66776 Thrive Questionnaire Date Thrive assessed: 06/29/24 I am a: Patient What is your living situation today?: I have a steady place to live Within the past 12 months, did the food you bought not last and you didn't have the money to get more?: Never true Within the past 12 months, did you worry whether your food would run out before you got money to buy more?: Never true Do you have trouble paying for medicines?: No Do you have trouble getting transportation to medical appointments?: Yes Do you have trouble paying your heating and electricity bill?: No Do you have trouble taking care of your child, family member or friend?: No Do you have trouble with day-to-day activities such as bathing, preparing meals, shopping, managing finances, etc.?: No Are you currently unemployed and looking for a job?: No Are you interested in more education?: No Please select the resources that you would like help with: None Currently or been in a relationship where the following occur: No concerns reported THRIVE Score: 1 Review of Systems Const All systems reviewed & are unremarkable except as noted in HPI and below Card Denies chest pain at rest, Denies chest pain with activity, Denies edema, Denies irregular heart rhythm, Denies claudication, Denies dyspnea, Denies dyspnea on exertion, Denies orthopnea, Denies paroxysmal nocturnal dyspnea and Denies slow heart rate Resp Denies cough, Denies dyspnea and Denies dyspnea on exertion GI Denies abdominal pain, Denies change in bowel habits, Denies excessive flatus, Denies nausea and Denies vomiting Denies urinary hesitancy, Denies urinary incontinence and Denies urinary urgency Musc Denies atrophy, Denies deformity and Denies limited range of motion Physical Exam Vital Signs: Last Vital Signs BP 132/86 06/29/24 08:58 BMI result Body Mass Index 37.4 Resp Effort & Inspection: normal respiratory effort Auscultation: clear to auscultation bilaterally Cardio Jugular venous distension: no JVD Rate: regular rate Rhythm: regular rhythm Heart sounds: S1 normal heart sound present and S2 normal heart sound present Neuro Romberg Test: Negative Extrem General: Yes full ROM Assessment & Plan Assessment & Plan (1) Encounter for Medicare annual wellness exam: Code(s): Z00.00 - Encounter for general adult medical examination without abnormal findings (2) COPD (chronic obstructive pulmonary disease): Code(s): J44.9 - Chronic obstructive pulmonary disease, unspecified Qualifiers: COPD type: unspecified COPD Qualified Code(s): J44.9 - Chronic obstructive pulmonary disease, unspecified Plan Discussions revolved around planning for future screenings when convenient, with detailed considerations for advancing telehealth engagements to ensure continual review of lab work while emphasizing engagement in independent daily routines. Suggestions to prudently observe and limit tobacco and alcohol intake were designed within his progressive health maintenance and follow-up schedules highlighted to secure and sustain optimal health standing.: Patient was informed and verbally consented to the use of an ambient scribe for clinic note documentation during this visit. Throughout the visit, I discussed the significance of maintaining effective medication use for hypertension and hypercholesterolemia management. The patient agreed with the proposed continuation of atorvastatin and losartan, recognizing the benefits of sustained control on cardiovascular and metabolic health. I recommended a pneumococcal vaccine given his historical age-specific vaccination, highlighting Medicare coverage to overcome cost concerns, and in alignment with the recommendations made. It was mutually decided that telehealth check-ins for future blood work evaluations would be advantageous, reducing clinic visits unless necessitated by abnormal findings or new symptoms. Colonoscopy deferment was understood amid discussions of associated challenges and oversight of symptomatic developments. Overall, I encouraged limited albeit cognizant social alcohol consumption and use of tobacco, further advising his astuteness in approaching screenings like colonoscopy inflow with personal health priorities. Orders: Orders Lipid Panel 6 Months E78.5 - Hyperlipidemia, unspecified Vitamin D 25-OH Total 6 Months E55.9 - Vitamin D deficiency, unspecified Vitamin B12 and Folate 6 Months E53.8 - Deficiency of other specified B group vitamins Comprehensive [place]. Panel Fast 6 Months R74.01 - Elevation of levels of liver transaminase levels Patient Instructions: - Continue taking medications as prescribed (atorvastatin, losartan, and inhaler). - Schedule a pneumococcal vaccine since it's recommended after reaching 65. - Plan a colonoscopy next year due to previous examinations timeframe. - Engage in regular physical activity at a comfortable pace without increasing risk. - Schedule a telehealth appointment after the blood tests in six months. - Limit tobacco and alcohol intake to reduce health risks and aid disease prevention. - Reach out for advice or medical service if health symptoms change or expand beyond normal experiences. - Follow healthy lifestyle practices supporting cardiovascular, metabolic, and general health standards. Quality Reporting (2019) Adult ([facility] 138//) Smoking risk assessment performed?: Yes Patient Tobacco Use Status: Current someday Tobacco user Fall Risk Screening ([facility] 139) Fall risk assessment: No Falls in past year Depression/Bipolar (159/160/161/177) PHQ-9: Total score: 2 Coding Level of Care Code Medicare Subsequent (G0439) Diagnoses Encounter for Medicare annual wellness exam Z00.00 Chronic obstructive pulmonary disease, unspecified COPD type J44.9 COPD type: unspecified COPD Additional Codes EDUIN-7 Assessment Billing - EDUIN-7 Assessment Tool: EDUIN-7 Assessment 85807 ([id number]) PHQ-9 - 78840 - PHQ-9 Billing: Yes ([id number]) Time Spent (min) 34
== END 2024-06-29 09:34 | disposition home or self-care (01) ==
LOC: HO.HMCH 08:33
PROVIDERS: PCP Internal Medicine; Visit Provider Internal Medicine
DX: Z00.00 Encounter for general adult medical examination without abnormal findings (principal); J44.9 Chronic obstructive pulmonary disease, unspecified

== ENCOUNTER → 2024-06-29 08:32 | Outpatient (BNVA) | payer MEDICARE, SELFPAY | PROVIDERS: PCP Internal Medicine; Visit Provider Internal Medicine | DX: Z00.00 Encounter for general adult medical examination without abnormal findings (principal); J44.9 Chronic obstructive pulmonary disease, unspecified | CPT/HCPCS: 96127 ==

== ENCOUNTER 2025-01-27 07:49 | Outpatient (REF) | payer MEDICARE, SELFPAY ==
--- OUTSIDE RECORDS SUMMARY | 2025-01-27 07:54 | XMS_ITS | Patient Health Record ---
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 Name Role Phone Carina Coleman Primary Care Provider Jimmie Marshall Jr Unavailable Reason For Referral No Information Medications Medication SIG (Take, Route, Frequency, Duration) Notes Start Date End Date Status Colyte with Flavor Packs 240 GM Solution Reconstituted As directed Orally Over the specified time.; Duration: 1 day(s) 01/01/2014 Active Colyte with Flavor Packs 240 GM Solution Reconstituted As directed Orally Over the specified time.; Duration: 1 day(s) 01/01/2014 Active Cyanocobalamin 1000 MCG/ML Solution INJECT 1ML EVERY WEEK FOR 4 WEEKS THEN ONCE A MONTH Injection; Duration: 28 Active Vitamin B-1 50 MG Tablet TAKE 1 TABLET B Y MOUTH ONCE A WEEK Oral; Duration: 30 Active Folic Acid 1 MG Tablet take 1 tablet by mouth once daily Oral; Duration: 30 Active Pravastatin Sodium 20 MG Tablet take 1 tablet by mouth once daily Oral; Duration: 30 Active Nabumetone 500 MG Tablet take 1 tablet b y mouth twice a day Oral; Duration: 30 Active Social History Social History Additional Details Category Social Info Options Details Miscellaneous: Marital status: single Occupation: unemployed Problems Problem Type SNOMED Code ICD Code Onset Dates Problem Status W/U Status Risk Notes Problem Colon cancer screening (744117485) Colon cancer screening (V76.51) Active confirmed Problem correction current use of non-steroidal anti-inflammat ories (NSAID) (V58.64) Active confirmed Plan Of Treatment Future Test Test Name Order Date COLONOSCOPY 01/01/2014 Insurance Providers Payer Name Payer Address Payer Phone Subscriber Number Group Number Insured Name Patient Relationship to Insured Coverage Start Date Coverage End Date MEDICAID OF [facility] [address] [place] [phone] [id number] [employer] Self - patient is the insured Medical (General) History Medical History History ICD Code hypertension osteoarthritis elevated cholesterol B12 deficiency Surgical History Surgery Date(Month/Year) appendectomy skin graft left knee arthroscopy
[2025-01-27 09:13] LABS: Alanine Aminotransferase 26 U/L (0-40); Albumin Level 4.8 g/dL (3.5-5.0); Alkaline Phosphatase 86 U/L (39-117); Anion Gap 13 (12-20); Aspartate Amino Transferase 26 U/L (5-37); Blood Urea Nitrogen 14 mg/dL (9-16); Calcium 9.6 mg/dL (8.4-10.2); Carbon Dioxide 28 mmol/L (22-29); Chloride 103 mmol/L (96-108); Cholesterol 203 mg/dL (<200); Estimated Glomerular Filt Rate > 60; HDL Cholesterol 50 mg/dL (>40); Potassium 4.0 mmol/L (3.3-5.1); Sodium 140 mmol/L (135-145); Total Protein 7.4 g/dL (6.5-8.0); Triglycerides 199 mg/dL (<150)
[2025-01-27 09:34] LABS: Folate 14.5 ng/mL (> or = 4.0); Vitamin B12 283 pg/mL (200-900)
== END 2025-01-27 07:50 | disposition home or self-care (01) ==
LOC: HO.LAB 07:49
PROVIDERS: PCP Internal Medicine; Visit Provider Internal Medicine
DX: R74.01 Elevation of levels of liver transaminase levels (principal); E78.5 Hyperlipidemia, unspecified; E53.8 Deficiency of other specified B group vitamins; E55.9 Vitamin D deficiency, unspecified
CPT/HCPCS: 36415; 80053; 80061; 82306; 82607; 82746